=== PATIENT | female | born 1995 | race Caucasian/White ===

== ENCOUNTER 2024-07-28 19:47 | Emergency (ER) | payer OTHER ==
[~2024-07-28] VITALS: Ht 152.4 cm; Wt 64.0 kg
[2024-07-28 19:56] VITALS: O2SAT 100
[2024-07-28 20:04] VITALS: TEMP 36.7; O2SAT 100
[2024-07-28 23:03] VITALS: BP 122/69; PULSE 77; RESP 18
[2024-07-28] MEDS: KETOROLAC 30MG/ML VIAL IM ONE (23:03)
== END 2024-07-29 00:19 | disposition home or self-care (01) ==
LOC: ER 19:47
DX: S60.212A Contusion of left wrist, initial encounter (principal); W20.8XXA Other cause of strike by thrown, projected or falling object, initial encounter; Y93.89 Activity, other specified; Y92.89 Other specified places as the place of occurrence of the external cause; Y99.8 Other external cause status
CPT/HCPCS: 99283; 81025; 73110; 96372; J1885